=== PATIENT | male | born 1985 | race Caucasian/White ===

== ENCOUNTER 2018-08-12 12:59 | Emergency (ER) | payer MEDICAID ==
[~2018-08-12] VITALS: Ht 177.8 cm; Wt 113.4 kg
[2018-08-12 13:54] VITALS: BP 129/78
== END 2018-08-12 15:43 | disposition home or self-care (01) ==
LOC: ER 12:59
DX: S53.402A Unspecified sprain of left elbow, initial encounter (principal); W22.8XXA Striking against or struck by other objects, initial encounter; Y93.89 Activity, other specified; Y92.89 Other specified places as the place of occurrence of the external cause; Y99.8 Other external cause status
CPT/HCPCS: 73090